=== PATIENT | male | born 1975 | race African-American/Black ===

== ENCOUNTER 2019-03-19 13:29 | Emergency (ER) | payer OTHER ==
[~2019-03-19] VITALS: Ht 180.3 cm; Wt 97.5 kg
[2019-03-19 13:56] VITALS: BP 139/86
[2019-03-19 14:19] LABS: Urine Bacteria None Seen /hpf (None Seen)
[2019-03-19 15:14] LABS: Urine Specific Gravity 1.022 (1.001-1.035)
[2019-03-19 15:15] LABS: Urine Blood Negative /uL (Negative); Urine WBC 0-1 /hpf (0 - 3)
== END 2019-03-19 17:15 | disposition home or self-care (01) ==
LOC: ER 13:29
DX: N39.0 Urinary tract infection, site not specified (principal); Z87.442 Personal history of urinary calculi
CPT/HCPCS: 81001